=== PATIENT | male | born 1945 | race Caucasian/White ===

== ENCOUNTER 2019-04-11 12:48 | Outpatient (CLI) | payer MEDICARE ==
[~2019-04-11] VITALS: Ht 172.7 cm; Wt 65.8 kg
[2019-04-11 13:24] LABS: CALCIUM, SERUM 8.3 mg/dL (8.5-10.1); POTASSIUM 4.1 mmol/L (3.5-5.1)
[2019-04-11] MEDS ORDERED: NITROGLYCERIN 0.4 MG/TAB BOTTLE ONE (13:52)
[2019-04-11] MEDS ORDERED: IOHEXOL-350 100 ML VIAL IV ONE (13:52)
[2019-04-11] MEDS ORDERED: METOPROLOL TARTRATE INJ 5 MG/5 ML AMPUL ONE (13:53)
[2019-04-11] MEDS ORDERED: NITROGLYCERIN 0.4 MG/TAB BOTTLE SL ONE (14:00)
[2019-04-11] MEDS: METOPROLOL TARTRATE INJ 5 MG/5 ML AMPUL IVP PRN ×2 (14:35→14:38)
[2019-04-11] MEDS: IV NS 0.9% 500 ML IV PRN ×2 (14:35→14:38)
[2019-04-11 14:38] VITALS: BP 123/54
== END 2019-04-11 23:59 | disposition home or self-care (01) ==
LOC: CT 12:48
PROVIDERS: ATTEND Internal Medicine Interventional Cardiology
DX: I25.10 Atherosclerotic heart disease of native coronary artery without angina pectoris (principal); J43.9 Emphysema, unspecified; M47.814 Spondylosis without myelopathy or radiculopathy, thoracic region
CPT/HCPCS: 36415; 75574; 80048; Q9967; J3490

== ENCOUNTER 2019-09-21 08:49 | Outpatient (CLI) | payer MEDICARE, BC | END 2019-09-21 23:59 | disposition home or self-care (01) | LOC: CARD 08:49 | PROVIDERS: ATTEND Internal Medicine Interventional Cardiology | DX: I73.9 Peripheral vascular disease, unspecified (principal) ==

== ENCOUNTER 2021-01-27 20:21 | Emergency (ER) | payer MEDICARE, BC ==
[~2021-01-27] VITALS: Ht 172.7 cm; Wt 65.8 kg
--- NOTE | 2021-01-27 20:39 | NUR ---
PT FRANCESCA FROM HOME C/O BILATERAL WRIST PAIN AFTER TRIPPING OVER WIRES BECAUSE HIS SANDALS GOT CAUGHT IN THEM. PATIENT HAD FALLEN ON HIS FORE HEAD. LEFT ELBOW ABRASION AND LEFT KNEE ABRASION. PATIENT'S SENSATION ON BILATERAL HANDS ARE EQUAL. BILATERAL RADIAL PULSE EQUAL STRONG. PATIENT AAOX4. CURRENTLY DENIES PAIN ON FOREHEAD. PATIENT IS BREATHING EVENLY AND UNLABORED ON ROOM AIR AT 99%. WILL CONTINUE TO MONITOR CLOSELY.
--- NOTE | 2021-01-27 20:45 | NUR ---
SON, ELISSA: [phone] , SALVATORE: [phone]
[2021-01-27] MEDS: IV NS 0.9% 1,000 ML BAG IV ONE (21:25)
[2021-01-27 21:30] LABS: BASOPHILS % (AUTO) 0.2 % (0.0-2.0); EOSINOPHILS % (AUTO) 0.6 % (0.0-6.0); HEMATOCRIT 39 % (39-51); HEMOGLOBIN 12.8 g/dL (13.5-17.5); LYMPHOCYTES # (AUTO) 1.1 K/uL (0.8-4.8); LYMPHOCYTES % (AUTO) 12.2 % (20.0-44.0); MEAN CORPUSCULAR HGB CONC 33 g/dl (31.0-36.0); MEAN CORPUSCULAR VOLUME 91 fL (80-96); MONOCYTES # (AUTO) 0.5 K/uL (0.1-1.30); PLATELET COUNT (AUTO) 206 K/uL (150-450); RED BLOOD CELL COUNT(AUTO) 4.24 MIL/uL (4.5-6.0); WHITE BLOOD COUNT (AUTO) 8.7 K/uL (4.3-11.0)
[2021-01-27 21:57] LABS: ALANINE AMINOTRANSFERASE 23 U/L (12-78); ALBUMIN 3.7 g/dL (3.4-5.0); ALKALINE PHOSPHATASE 70 U/L (46-116); ASPARTATE AMINOTRANSFERASE 22 U/L (15-37); BILIRUBIN,DIRECT 0.1 mg/dL (0.0-0.2); BILIRUBIN,TOTAL 0.3 mg/dL (0.2-1.0); CALCIUM, SERUM 8.5 mg/dL (8.5-10.1); CARBON DIOXIDE 31 mmol/L (21-32); CHLORIDE 103 mmol/L (98-107); CREATININE 1.1 mg/dL (0.6-1.3); GLUCOSE 99 mg/dL (74-106); POTASSIUM 3.9 mmol/L (3.5-5.1); SODIUM SERUM 141 mmol/L (136-145); TOTAL PROTEIN, SERUM 7.8 g/dL (6.4-8.2); UREA NITROGEN, BLOOD 13 mg/dL (7-18)
--- NOTE | 2021-01-28 00:12 | NUR ---
PT OK TO BE DISCHARGED PER DR JOLLY. IV removed. Catheter intact and site benign. Pressure and 4x4 applied to site. No bleeding noted.Patient discharged to home in stable condition. Written and verbal after care instructions given. Patient verbalizes understanding of instruction.Patient is awake and alert to self, day, and place. PT ambulatory with a steady gait
[2021-01-28 01:04] VITALS: BP 122/75
== END 2021-01-28 00:12 | disposition home or self-care (01) ==
LOC: ER 20:23
DX: S63.592A Other specified sprain of left wrist, initial encounter (principal); S63.591A Other specified sprain of right wrist, initial encounter; S00.81XA Abrasion of other part of head, initial encounter; I10 Essential (primary) hypertension; F03.90 Unspecified dementia, unspecified severity, without behavioral disturbance, psychotic disturbance, mood disturbance, and anxiety; F17.200 Nicotine dependence, unspecified, uncomplicated; Z86.73 Personal history of transient ischemic attack (TIA), and cerebral infarction without residual deficits; W01.0XXA Fall on same level from slipping, tripping and stumbling without subsequent striking against object, initial encounter; Y93.89 Activity, other specified; Y92.89 Other specified places as the place of occurrence of the external cause; Y99.8 Other external cause status
CPT/HCPCS: 36415; 70450-TC; 71045-TC; 72125-TC; 73110; 80048-TC; 80076-TC; 84484-TC; 85025-TC; 85730-TC; 86850-TC